=== PATIENT | male | born 1960 | race Caucasian/White ===

== ENCOUNTER 2016-12-08 09:21 | Emergency (ER) | payer BC ==
[~2016-12-08] VITALS: Ht 167.6 cm; Wt 93.0 kg
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
[2016-12-08] MEDS ORDERED: NAPROSYN500 MG PO (10:21)
[2016-12-08] MEDS ORDERED: TRAMADOL 50 MG50 MG PO (10:21)
[2016-12-08 11:19] VITALS: BP 130/84
== END 2016-12-08 11:20 | disposition home or self-care (01) ==
LOC: ER 09:21
DX: S43.102A Unspecified dislocation of left acromioclavicular joint, initial encounter (principal); V87.8XXA Person injured in other specified noncollision transport accidents involving motor vehicle (traffic), initial encounter; Y93.55 Activity, bike riding; Y92.488 Other paved roadways as the place of occurrence of the external cause; Y99.8 Other external cause status